=== PATIENT | female | born 1955 | race Caucasian/White ===

== ENCOUNTER → 2018-11-04 09:09 | Outpatient (CLI) | payer OTHER, SELFPAY ==
--- NOTE | 2018-11-04 | DI.RAD.S_ITS ---
PROCEDURE: XR CERVICAL SPINE 2V OR 3V INDICATIONS: CERVICALGIA TECHNIQUE: 3 view(s) of the cervical spine were acquired. COMPARISON: None. FINDINGS: Bones: No fractures or dislocations to the T1 level. The lateral masses of C1 appear intact on the odontoid view. No suspicious bony lesions. There is mild levocurvature. Diffuse facet arthropathy. Moderate narrowing of C5-C6 disc space. There is mild narrowing of the remaining cervical disc spaces with relative sparing of C2-C3. Soft tissues: No prevertebral soft tissue swelling. IMPRESSION: Diffuse cervical spondylosis and facet arthropathy, most pronounced at C5-C6. Mild levocurvature. Dictated by: Christopher Hunter M.D. on 11/04/2018 at 10:24 Approved by: Christopher Hunter M.D. on 11/04/2018 at 10:26
== END ==
PROVIDERS: PCP Internal Medicine; Visit Provider Internal Medicine
DX: M54.2 Cervicalgia (principal); M47.812 Spondylosis without myelopathy or radiculopathy, cervical region
CPT/HCPCS: 72040

== ENCOUNTER 2022-04-19 15:07 | Emergency (ER) | payer MEDICARE, SELFPAY ==
[2022-04-19] VITALS (21 sets, daily range): BP systolic 99–161; BP diastolic 61–115; PULSE 59–145; RESP 14–28; TEMP 36.7; O2SAT 97–100; BMI 19.7
--- NOTE | 2022-04-19 15:15 | DI.RAD.S_ITS ---
PROCEDURE: XR CHEST 1V INDICATIONS: chest pain TECHNIQUE: One view of the chest was acquired. COMPARISON: [facility], , CHEST 1 VIEW, 12/12/2011, 10:55. FINDINGS: Surgical changes and devices: None. Lungs and pleura: Lungs are clear. No pleural effusions or pneumothorax. Mediastinum: Mediastinal contours appear normal. Heart size is normal. Bones and chest wall: No suspicious bony lesions. Overlying soft tissues appear unremarkable. IMPRESSION: No acute cardiopulmonary abnormality. Dictated by: Vernon García M.D. on 04/19/2022 at 16:04 Approved by: Vernon García M.D. on 04/19/2022 at 16:04
[2022-04-19 15:56] LABS: Add Manual Diff / Slide Review NO; Basophils Absolute Auto 100 /uL (0-100); Basophils Percent Auto 0.7 % (0-2); Eosinophils Absolute Auto 0 /uL (0-450); Eosinophils Percent Auto 0.3 % (2-4); Hematocrit 37.9 % (36-46); Hemoglobin 13.1 g/dL (12.0-16.0); Lymphocytes Absolute Auto 1400 /uL (1100-4500); Lymphocytes Percent Auto 16.4 % (25-40); Mean Corpuscular HGB Conc 34.5 % (30-36); Mean Corpuscular Hemoglobin 29.5 PG (26-34); Mean Corpuscular Volume 85.4 fL (80-100); Monocytes Absolute Auto 600 /uL (0-900); Monocytes Percent Auto 6.9 % (3-14); Neutrophils Absolute Auto 6400 /uL (1500-7000); Neutrophils Percent Auto 75.7 % (50-75); Platelet Count 372 X10^3/uL (150-400); Red Blood Cell Count 4.44 X10^6/uL (4.0-5.2); Red Cell Distribution Width 13.9 % (11.6-14.8); White Blood Cell Count 8.5 X10^3/uL (4.5-11.0)
[2022-04-19 15:57] LABS: INR 1.2 (0.9-1.3); Prothrombin Time 13.8 SECONDS (10.1-12.7)
[2022-04-19 16:00] LABS: PTT Partial Thromboplastin Tim 37 SECONDS (26-36)
--- NOTE | 2022-04-19 16:01 | PC.NURSE ---
Patient reports she had an ablation on 04/11/22, was NSR after and had not had a single palpitation until she awoke this morning and felt she was in afib. She was not placed on anti-arrythmics at the time, but given a prescription for Sotalol. She called her mule operator today and spoke to the nurse regarding symptoms, was instructed to start the Sotalol, she did not take a dose yet.
[2022-04-19 16:04] LABS: Alanine Aminotransferase 17 IU/L (<35); Albumin Globulin Ratio 1.4 (1.0-2.8); Alkaline Phosphatase 53 U/L (38-126); Aspartate Aminotransferase 33 IU/L (14-36); BUN Creatinine Ratio 18.6 (6-22); Blood Urea Nitrogen 11 mg/dL (7-17); Calcium 9.6 mg/dL (8.4-10.2); Carbon Dioxide 24 mmol/L (22-32); Chloride 98 mmol/L (98-107); Creatine Kinase 48 U/L (30-135); Estimated Glomerular Filt Rate > 60 mL/min (>60); Globulin 3.7 g/dL (1.7-4.1); Glucose 118 mg/dL (80-110); Lipase 51 U/L (23-300); Magnesium 2.2 mg/dL (1.6-2.3); Potassium 4.2 mmol/L (3.4-5.1); Sodium 133 mmol/L (137-145); Total Protein 8.7 g/dL (6.3-8.2)
[2022-04-19 16:05] LABS: HEMOLYSIS 61 (0-50)
[2022-04-19 16:14] LABS: Troponin I 0.117 ng/mL (0.01-0.034)
--- NOTE | 2022-04-19 16:26 | ED_ITS ---
HPI - Arrhythmia/Palpitations General Chief Complaint: Arrhythmia/Palpitations Stated Complaint: heart issues Time Seen by Provider: 04/19/22 16:16 Source: patient Mode of arrival: Ambulatory History of Present Illness HPI narrative: Patient is a healthy 66-year-old female history of atrial fibrillation. In fact she just had an ablation last week with her dairy cattle farm worker. She followed up with her dairy cattle farm worker yesterday at that time she was in sinus rhythm. This morning she woke up and knew she was in AFib. Her heart rate is 150-160. She can feel it in her chest. She has been taking Xarelto his not missed any doses. Patient is a that she was supposed to take sotalol. She did contact her dairy cattle farm worker this morning not sure if she was supposed to take the sotalol today are not but she did not take it. Related Data Home Medications Medication Instructions Recorded Confirmed [NATURAL THYROID SUPP] ##0 01/13/12 aspirin 81 mg chewable tablet 81 mg PO QDAY ##0 01/29/12 metoprolol tartrate 50 mg tablet 50 mg PO BID ##0 01/29/12 Allergies Allergy/AdvReac Type Severity Reaction Status Date / Time No Known Drug Allergies Allergy Verified 04/19/22 15:12 Review of Systems Review of Systems Narrative: GENERAL: Denies chills, fatigue, malaise, fever, sweats, travel HEENT: Denies sinus pain, ear pain, sore throat, difficulty swallowing, neck pain RESPIRATORY: Denies dyspnea, cough, wheezing, hemoptysis, sputum. CARDIOVASCULAR: See HP GASTROINTESTINAL: Denies nausea, vomiting, abdominal pain, diarrhea, constipation, melena. : Denies dysuria, frequency, incontinence, hematuria, urinary retention, flank pain. MUSCULOSKELETAL: Denies weakness, joint pain, or bony pain SKIN: No rash, no erythema, no pruritus NEUROLOGIC: Denies weakness, dizziness, headache, numbness, change in speech, confusion PSYCHIATRIC: No concerning psychosocial issues. 12 point review of systems is negative except for those stated above and HPI Patient History Social History Smoking Status: Unknown if ever smoked Smoking Status: Unknown if ever smoked alcohol intake frequency: 0-2 drinks per day Substance Use Type: does not use Exam Initial Vital Signs Initial Vital Signs: Vital Signs Temperature 98.0 F 04/19/22 15:11 Pulse Rate 59 L 04/19/22 15:11 Respiratory Rate 15 04/19/22 15:11 Blood Pressure 99/61 04/19/22 15:11 Pulse Oximetry 99 04/19/22 15:11 Oxygen Delivery Method 04/19/22 15:11 GENERAL: Alert pleasant 66-year-old female and in no acute distress. HEENT: Head atraumatic,EOMI, pupils reactive, face symmetric, moist mucous membranes CARDIOVASCULAR: Tachycardic irregularly irregular RESPIRATORY: Breath sounds equal bilaterally, no wheezes rales or rhonchi. ABDOMEN: Soft, nontender. Normoactive bowel sounds all 4 quadrants. No guardin g or rebound. EXTREMITIES: Normal range of motion, no clubbing or edema. Neurovascularly intact NEUROLOGICAL: Alert and oriented x4 SKIN: Warm, dry, no laceration, no petechiae, no rashes or lesions. Procedures Cardioversion Consent Signed: Yes Stability: Stable Number of attempts (shocks): 1 Joules used: 120 Cardiac rhythm post-cardioversion: NSR Procedural Sedation Indication: cardioversion IV Propofol dose (mg): 55 Intraservice time/total sedation time (min): 12 ED Sedation Level: Moderate (Concious) Patient Tolerated Procedure: Well and No complications Course Orders Ordered: ED Orders 04/19/22 15:15 XR chest 1V Stat EKG-12 Lead Stat 04/19/22 15:24 BNP [NT-proBNP (BNP-Adult 18+)] Stat Complete Blood Count AUTO DIFF Stat Comprehensive Metabolic Panel Stat Lipase Stat Magnesium Stat Partial Thromboplastin Time Stat Prothrombin Time INR Stat Troponin & CK Cardiac Panel Stat Discontinued Medications Metoprolol Tartrate (Metoprolol Tartrate 5 Mg/5 Ml Inj) 5 mg IV NOW ONE Stop: 04/19/22 16:49 Last Admin: 04/19/22 17:06 Dose: 5 mg Documented By: AT Propofol (Propofol 200 Mg/20 Ml Vial) 55 mg 1 mg/kg (55 mg) IV NOW ONE Stop: 04/19/22 17:50 Last Admin: 04/19/22 18:11 Dose: 55 mg Documented By: AT Vital Signs Vital signs: Vital Signs - 8 hr 04/19/22 15:11 04/19/22 15:17 04/19/22 15:20 Temperature 98.0 F Pulse Rate 59 L 123 H 132 H Respiratory Rate 15 16 Blood Pressure 99/61 Pulse Oximetry 99 99 100 Oxygen Delivery Method Room Air 04/19/22 15:20 04/19/22 15:30 04/19/22 15:30 Temperature Pulse Rate 135 H Respiratory Rate 14 Blood Pressure 146/115 H 152/79 H Pulse Oximetry 100 Oxygen Delivery Method 04/19/22 16:00 04/19/22 16:00 04/19/22 16:30 Temperature Pulse Rate 128 H Respiratory Rate 15 Blood Pressure 153/102 H 161/97 H Pulse Oximetry 100 Oxygen Delivery Method Room Air 04/19/22 16:30 04/19/22 17:00 04/19/22 17:06 Temperature Pulse Rate 133 H 132 H 145 H Respiratory Rate 23 22 14 Blood Pressure Pulse Oximetry 99 99 100 Oxygen Delivery Method Room Air 04/19/22 17:06 04/19/22 17:11 04/19/22 17:11 Temperature Pulse Rate 116 H Respiratory Rate 23 Blood Pressure 144/67 H 136/92 H Pulse Oximetry 99 Oxygen Delivery Method 04/19/22 17:15 04/19/22 17:15 04/19/22 17:30 Temperature Pulse Rate 117 H Respiratory Rate 18 Blood Pressure 133/70 124/70 Pulse Oximetry 100 Oxygen Delivery Method 04/19/22 17:30 04/19/22 17:45 04/19/22 17:45 Temperature Pulse Rate 107 H 101 H Respiratory Rate 20 21 Blood Pressure 124/80 Pulse Oximetry 100 99 Oxygen Delivery Method 04/19/22 18:00 04/19/22 18:00 04/19/22 18:12 Temperature Pulse Rate 116 H Respiratory Rate 21 Blood Pressure 119/80 108/69 Pulse Oximetry 99 Oxygen Delivery Method 04/19/22 18:12 04/19/22 18:15 04/19/22 18:15 Temperature Pulse Rate 87 73 Respiratory Rate 19 26 H Blood Pressure 107/69 Pulse Oximetry 99 98 Oxygen Delivery Method 04/19/22 18:20 04/19/22 18:20 04/19/22 18:25 Temperature Pulse Rate 73 Respiratory Rate 28 H Blood Pressure 106/69 114/75 Pulse Oximetry 97 Oxygen Delivery Method 04/19/22 18:25 04/19/22 18:30 04/19/22 18:30 Temperature Pulse Rate 72 70 Respiratory Rate 26 H 23 Blood Pressure 105/71 Pulse Oximetry 97 98 Oxygen Delivery Method 04/19/22 18:35 04/19/22 18:35 Temperature Pulse Rate 71 Respiratory Rate 24 Blood Pressure 119/78 Pulse Oximetry 99 Oxygen Delivery Method MDM - Arrhythmia/Palpitations Lab Data Result diagrams: 04/19/22 15:24 04/19/22 15:24 Labs: Lab Results 04/19/22 04/19/22 04/19/22 Range/Units 15:24 15:24 15:24 WBC 8.5 (4.5-11.0) X10^3/uL RBC 4.44 (4.0-5.2) X10^6/uL Hgb 13.1 (12.0-16.0) g/dL Hct 37.9 (36-46) % MCV 85.4 (80-100) fL MCH 29.5 (26-34) PG MCHC 34.5 (30-36) % RDW 13.9 (11.6-14.8) % Plt Count 372 (150-400) X10^3/uL Neut % (Auto) 75.7 H (50-75) % Lymph % (Auto) 16.4 L (25-40) % Navarro % (Auto) 6.9 (3-14) % Eos % (Auto) 0.3 L (2-4) % Baso % (Auto) 0.7 (0-2) % Neut # (Auto) 6400 (7665-4207) /uL Lymph # (Auto) 1400 (8372-4254) /uL Navarro # (Auto) 600 (0-900) /uL Eos # (Auto) 0 (0-450) /uL Baso # (Auto) 100 (0-100) /uL PT 13.8 H (10.1-12.7) SECONDS INR 1.2 (0.9-1.3) APTT 37 H (26-36) SECONDS Sodium 133 L (137-145) mmol/L Potassium 4.2 (3.4-5.1) mmol/L Chloride 98 (98-107) mmol/L Carbon Dioxide 24 (22-32) mmol/L BUN 11 (7-17) mg/dL Creatinine 0.59 (0.52-1.04) mg/dL Estimated GFR > 60 (>60) mL/min BUN/Creatinine Ratio 18.6 (6-22) Glucose 118 H (80-110) mg/dL Calcium 9.6 (8.4-10.2) mg/dL Magnesium 2.2 (1.6-2.3) mg/dL Total Bilirubin 2.0 H (0.2-1.3) mg/dL AST 33 (14-36) IU/L ALT 17 (<35) IU/L Alkaline Phosphatase 53 (38-126) U/L Total Creatine Kinase 48 (30-135) U/L CK-MB (CK-2) TNP CK-MB (CK-2) Rel Index TNP Troponin I 0.117 H (0.01-0.034) ng/mL NT-Pro-B Natriuret Pep (<125) pg/mL Total Protein 8.7 H (6.3-8.2) g/dL Albumin 5.0 (3.5-5.0) g/dL Globulin 3.7 (1.7-4.1) g/dL Albumin/Globulin Ratio 1.4 (1.0-2.8) Lipase 51 (23-300) U/L 04/19/22 Range/Units 15:24 WBC (4.5-11.0) X10^3/uL RBC (4.0-5.2) X10^6/uL Hgb (12.0-16.0) g/dL Hct (36-46) % MCV (80-100) fL MCH (26-34) PG MCHC (30-36) % RDW (11.6-14.8) % Plt Count (150-400) X10^3/uL Neut % (Auto) (50-75) % Lymph % (Auto) (25-40) % Navarro % (Auto) (3-14) % Eos % (Auto) (2-4) % Baso % (Auto) (0-2) % Neut # (Auto) (5676-1506) /uL Lymph # (Auto) (2587-0092) /uL Navarro # (Auto) (0-900) /uL Eos # (Auto) (0-450) /uL Baso # (Auto) (0-100) /uL PT (10.1-12.7) SECONDS INR (0.9-1.3) APTT (26-36) SECONDS Sodium (137-145) mmol/L Potassium (3.4-5.1) mmol/L Chloride (98-107) mmol/L Carbon Dioxide (22-32) mmol/L BUN (7-17) mg/dL Creatinine (0.52-1.04) mg/dL Estimated GFR (>60) mL/min BUN/Creatinine Ratio (6-22) Glucose (80-110) mg/dL Calcium (8.4-10.2) mg/dL Magnesium (1.6-2.3) mg/dL Total Bilirubin (0.2-1.3) mg/dL AST (14-36) IU/L ALT (<35) IU/L Alkaline Phosphatase (38-126) U/L Total Creatine Kinase (30-135) U/L CK-MB (CK-2) CK-MB (CK-2) Rel Index Troponin I (0.01-0.034) ng/mL NT-Pro-B Natriuret Pep 1010 H (<125) pg/mL Total Protein (6.3-8.2) g/dL Albumin (3.5-5.0) g/dL Globulin (1.7-4.1) g/dL Albumin/Globulin Ratio (1.0-2.8) Lipase (23-300) U/L Imaging Data Chest x-ray: Radiologist's Impresson: XRay Report Signed Patient: Maye Ramírez MR#: [id number] : 1955 Acct:[id number] Age/Sex: 66 / F Date of Service: 04/19/22 Loc: ED Accession Number: [id number] ?? Procedure: XR chest 1V Ordering Provider: Eileen Rodney D.O. PROCEDURE:? XR CHEST 1V ? INDICATIONS:? chest pain ? TECHNIQUE:? One view of the chest was acquired.? ? COMPARISON:? [facility], , CHEST 1 VIEW, 12/12/2011, 10:55. ? FINDINGS:? ? Surgical changes and devices:? None.? ? Lungs and pleura:? Lungs are clear.? No pleural effusions or pneumothorax.? ? Mediastinum:? Mediastinal contours appear normal.? Heart size is normal.? ? Bones and chest wall:? No suspicious bony lesions.? Overlying soft tissues appear unremarkable.? ? IMPRESSION:? No acute cardiopulmonary abnormality. ? ? ? Dictated by: Vernon García M.D. on 04/19/2022 at 16:04 ? ? ECG Data Interpretation: EKG 1. Atrial fibrillation rate [address] changes EKG 2. Sinus rhythm rate 73 WA interval 172 QRS [address] changes MDM Narrative Medical decision making narrative: Patient has AFib with RVR heart rate is 160 status post ablation 1 week. Patient has been taking her Xarelto without any break. Difficult to understand what she was doing with the sotalol if she is supposed to take it. 17:15 Dr jung, cardiology [facility] states that there is no contraindication to cardioversion and recommends to cardiovert with outpatient follow-up. Patient was easily cardioverted without any difficulty Discharge Plan Departure Patient Disposition: Home Clinical Impression: Atrial fibrillation Instructions: DI for Atrial Fibrillation Activity Restrictions/Additional Instructions: *You have been diagnosed with atrial fibrillation *What to do: Please follow-up with cardiology *Continue to take medications as directed Continue Xarelto *Follow up with your primary care provider in 2-3 days or call [phone] *Return to ER if you should have chest pain shortness of breath palpitation or any new, worsening or concerning symptoms Prescriptions: No Action [NATURAL THYROID SUPP] Qty: 0 metoprolol tartrate 50 MG tablet 50 mg PO BID Qty: 0 aspirin 81 MG tablet,chewable 81 mg PO QDAY Qty: 0 Referrals: Patsy Ruth PA-C [Primary Care Provider] - Ladarius Shannon MD [Non-Staff] -
[2022-04-19] MEDS: METOPROLOL TARTRATE 5 MG/5 ML INJ IV (17:06)
[2022-04-19] MEDS: propofoL 200 MG/20 ML VIAL 55 MG IV (18:11)
[2022-04-19 18:43] LABS: NT-proBNP (BNP-Adult 18+) 1010 pg/mL (<125)
== END 2022-04-19 19:18 | disposition home or self-care (01) ==
PROVIDERS: Emergency Provider Emergency Medicine; PCP Physician Assistant
DX: I48.91 Unspecified atrial fibrillation (principal); Z79.01 Long term (current) use of anticoagulants
CPT/HCPCS: 36415; 71045; 80053; 82550; 83690; 83735; 83880; 84484; 85025; 85610; 85730; 92960; 93005; 96374; 99152; 99285; 99291; J2704

== ENCOUNTER → 2022-09-21 14:12 | Outpatient (CLI) | payer MEDICARE, SELFPAY | PROVIDERS: PCP Physician Assistant; Referring Provider Physician Assistant; Visit Provider Physician Assistant | DX: Z78.0 Asymptomatic menopausal state (principal); Z13.820 Encounter for screening for osteoporosis; M85.851 Other specified disorders of bone density and structure, right thigh; Z92.23 Personal history of estrogen therapy | CPT/HCPCS: 77080 ==

== ENCOUNTER → 2022-12-28 08:45 | Outpatient (CLI) | payer MEDICARE, SELFPAY ==
[2022-12-28 10:17] LABS: Alanine Aminotransferase 30 IU/L (<35); Albumin 4.6 g/dL (3.5-5.0); Albumin Globulin Ratio 1.4 (1.0-2.8); Alkaline Phosphatase 50 U/L (38-126); Aspartate Aminotransferase 31 IU/L (14-36); BUN Creatinine Ratio 12.5 (6-22); Bilirubin Total 0.8 mg/dL (0.2-1.3); Blood Urea Nitrogen 8 mg/dL (7-17); Calcium 9.3 mg/dL (8.4-10.2); Carbon Dioxide 27 mmol/L (22-32); Chloride 98 mmol/L (98-107); Cholesterol 288 mg/dL (140-199); Estimated Glomerular Filt Rate > 60 mL/min (>60); Globulin 3.2 g/dL (1.7-4.1); Glucose 89 mg/dL (80-110); HDL Cholesterol 110 mg/dL (40-60); HEMOLYSIS < 15 (0-50); LDL Cholesterol Calculated 155 mg/dL (<100); Potassium 4.1 mmol/L (3.4-5.1); Sodium 133 mmol/L (137-145); Total Protein 7.8 g/dL (6.3-8.2); Triglycerides 117 mg/dL (35-150)
[2022-12-28 10:37] LABS: Free T3, Triiodothyronine Free 3.52 pg/mL (2.77-5.27); Free T4, Direct Thyroxine 0.86 ng/dL (0.78-2.19); T4 Total Thyroxine 5.94 ug/dL (5.5-11.0)
[2022-12-28 10:50] LABS: Thyroid Stimulating Hormone 2.28 uIU/mL (0.47-4.68)
[2022-12-29 09:51] LABS: Thyroid Peroxidase Antibodies <9 IU/mL (0-34); Triiodothyronine T3 Total 91 ng/dL (71-180)
[2022-12-31 06:08] LABS: HCV AB Non Reactive (Non Reactive)
[2023-01-07 10:11] LABS: Triiodothyronine T3 Reverse 12.6
[2023-01-09 01:25] LABS: Thyroglobulin Level 8.5 ng/mL (.)
== END ==
PROVIDERS: PCP Family Medicine; Referring Provider Nurse Practitioner Family; Visit Provider Nurse Practitioner Family
DX: E03.9 Hypothyroidism, unspecified (principal); Z13.220 Encounter for screening for lipoid disorders; Z11.59 Encounter for screening for other viral diseases
CPT/HCPCS: 36415; 80053; 80061; 82542; 84432; 84436; 84439; 84443; 84480; 84481; 84482; 86376; 86803

== ENCOUNTER → 2023-04-08 14:33 | Outpatient (CLI) | payer MEDICARE, SELFPAY ==
[2023-04-08 15:19] LABS: Add Manual Diff / Slide Review NO; Basophils Absolute Auto 0 /uL (0-100); Basophils Percent Auto 0.7 % (0-2); Eosinophils Absolute Auto 100 /uL (0-450); Eosinophils Percent Auto 0.9 % (2-4); Hematocrit 34.4 % (36-46); Hemoglobin 11.8 g/dL (12.0-16.0); Lymphocytes Absolute Auto 2100 /uL (1100-4500); Mean Corpuscular HGB Conc 34.5 % (30-36); Mean Corpuscular Hemoglobin 29.5 PG (26-34); Mean Corpuscular Volume 85.7 fL (80-100); Monocytes Absolute Auto 600 /uL (0-900); Monocytes Percent Auto 9.2 % (3-14); Neutrophils Absolute Auto 3900 /uL (1500-7000); Neutrophils Percent Auto 58.2 % (50-75); Platelet Count 288 X10^3/uL (150-400); Red Blood Cell Count 4.01 X10^6/uL (4.0-5.2); Red Cell Distribution Width 13.9 % (11.6-14.8); White Blood Cell Count 6.6 X10^3/uL (4.5-11.0)
[2023-04-08 15:39] LABS: Alanine Aminotransferase 21 IU/L (<35); Albumin 4.6 g/dL (3.5-5.0); Albumin Globulin Ratio 1.4 (1.0-2.8); Alkaline Phosphatase 65 U/L (38-126); Aspartate Aminotransferase 31 IU/L (14-36); BUN Creatinine Ratio 20.7 (6-22); Bilirubin Total 1.4 mg/dL (0.2-1.3); Blood Urea Nitrogen 12 mg/dL (7-17); Calcium 9.5 mg/dL (8.4-10.2); Carbon Dioxide 23 mmol/L (22-32); Chloride 99 mmol/L (98-107); Cholesterol 266 mg/dL (140-199); Estimated Glomerular Filt Rate > 60 mL/min (>60); Globulin 3.4 g/dL (1.7-4.1); Glucose 85 mg/dL (80-110); HEMOLYSIS < 15 (0-50); Potassium 4.4 mmol/L (3.4-5.1); Sodium 132 mmol/L (137-145); Triglycerides 121 mg/dL (35-150)
[2023-04-08 15:46] LABS: HDL Cholesterol 102 mg/dL (40-60); LDL Cholesterol Calculated 140 mg/dL (<100)
[2023-04-08 16:03] LABS: Thyroid Stimulating Hormone 0.062 uIU/mL (0.47-4.68)
[2023-04-08 16:24] LABS: Free T3, Triiodothyronine Free 4.54 pg/mL (2.77-5.27); Free T4, Direct Thyroxine 1.15 ng/dL (0.78-2.19)
== END ==
PROVIDERS: PCP Family Medicine; Referring Provider Family Medicine; Visit Provider Family Medicine
DX: Z00.00 Encounter for general adult medical examination without abnormal findings (principal); E03.9 Hypothyroidism, unspecified
CPT/HCPCS: 36415; 80053; 80061; 84439; 84443; 84481; 85025

== ENCOUNTER → 2023-06-05 08:39 | Outpatient (CLI) | payer MEDICARE, SELFPAY ==
--- NOTE | 2023-06-05 08:41 | DI.RAD.S_ITS ---
PROCEDURE: XR SHOULDER RT MIN 2V INDICATIONS: Right shoulder pain TECHNIQUE: 3 views of the shoulder were acquired. COMPARISON: None. FINDINGS: Bones: No fractures or dislocations. No suspicious bony lesions. Visualized ribs appear intact. Soft tissues: No suspicious soft tissue calcifications. IMPRESSION: No acute osseous abnormality. If pain persists with conservative management, consider repeat x-ray in 10-14 days or cross-sectional imaging. Dictated by: Alvin Perez M.D. on 06/05/2023 at 9:18 Approved by: Alvin Perez M.D. on 06/05/2023 at 9:19
== END ==
PROVIDERS: PCP Family Medicine; Referring Provider Family Medicine; Visit Provider Family Medicine
DX: M25.511 Pain in right shoulder (principal)
CPT/HCPCS: 73030

== ENCOUNTER → 2023-06-27 10:14 | Outpatient (CLI) | payer MEDICARE, SELFPAY ==
[2023-06-27 12:11] LABS: Free T3, Triiodothyronine Free 3.73 pg/mL (2.77-5.27)
[2023-06-27 12:19] LABS: BUN Creatinine Ratio 7.7 (6-22); Blood Urea Nitrogen 5 mg/dL (7-17); Calcium 9.8 mg/dL (8.4-10.2); Carbon Dioxide 25 mmol/L (22-32); Chloride 101 mmol/L (98-107); Estimated Glomerular Filt Rate > 60 mL/min (>60); Glucose 89 mg/dL (80-110); HEMOLYSIS < 15 (0-50); Potassium 4.5 mmol/L (3.4-5.1); Sodium 134 mmol/L (137-145)
[2023-06-27 12:25] LABS: Thyroid Stimulating Hormone 3.36 uIU/mL (0.47-4.68)
[2023-06-29 19:36] LABS: Anti Thyroglobulin Antibody <1.0 IU/mL (0.0-0.9)
[2023-07-02 10:02] LABS: Thyroid Peroxidase Antibodies <9 IU/mL (0-34)
== END ==
PROVIDERS: PCP Family Medicine; Referring Provider Internal Medicine Endocrinology, Diabetes & Metabolism; Visit Provider Internal Medicine Endocrinology, Diabetes & Metabolism
DX: E03.8 Other specified hypothyroidism (principal); E06.3 Autoimmune thyroiditis
CPT/HCPCS: 36415; 80048; 84439; 84443; 84481; 86376; 86800

== ENCOUNTER → 2023-08-23 09:01 | Outpatient (CLI) | payer MEDICARE, SELFPAY ==
[2023-08-23 11:23] LABS: Free T3, Triiodothyronine Free 5.54 pg/mL (2.77-5.27); Free T4, Direct Thyroxine 1.01 ng/dL (0.78-2.19)
[2023-08-23 11:36] LABS: Thyroid Stimulating Hormone 0.129 uIU/mL (0.47-4.68)
[2023-08-24 18:34] LABS: Anti Thyroglobulin Antibody <1.0 IU/mL (0.0-0.9)
[2023-09-02 10:16] LABS: Thyroid Peroxidase Antibodies 9
== END ==
PROVIDERS: PCP Family Medicine; Referring Provider Internal Medicine Endocrinology, Diabetes & Metabolism; Visit Provider Internal Medicine Endocrinology, Diabetes & Metabolism
DX: E03.8 Other specified hypothyroidism (principal); E06.3 Autoimmune thyroiditis
CPT/HCPCS: 36415; 84439; 84443; 84481; 86376; 86800

== ENCOUNTER → 2023-09-25 06:48 | Outpatient (CLI) | payer MEDICARE, SELFPAY ==
[2023-09-25 08:54] LABS: Free T4, Direct Thyroxine 0.89 ng/dL (0.78-2.19)
[2023-09-25 09:07] LABS: Thyroid Stimulating Hormone 1.03 uIU/mL (0.47-4.68)
== END ==
LOC: LAB 06:50
PROVIDERS: PCP Family Medicine; Referring Provider Internal Medicine Endocrinology, Diabetes & Metabolism; Visit Provider Internal Medicine Endocrinology, Diabetes & Metabolism
DX: E03.8 Other specified hypothyroidism (principal); E06.3 Autoimmune thyroiditis
CPT/HCPCS: 36415; 84439; 84443; 84481

== ENCOUNTER → 2024-01-30 11:08 | Outpatient (CLI) | payer MEDICARE, SELFPAY ==
[2024-01-30 13:34] LABS: Free T3, Triiodothyronine Free 3.16 pg/mL (2.77-5.27); Free T4, Direct Thyroxine 0.81 ng/dL (0.78-2.19)
[2024-01-30 13:47] LABS: Thyroid Stimulating Hormone 0.611 uIU/mL (0.47-4.68)
== END ==
LOC: LAB 11:09
PROVIDERS: PCP Family Medicine; Referring Provider Internal Medicine Endocrinology, Diabetes & Metabolism; Visit Provider Internal Medicine Endocrinology, Diabetes & Metabolism
DX: E03.8 Other specified hypothyroidism (principal); E06.3 Autoimmune thyroiditis
CPT/HCPCS: 36415; 84439; 84443; 84481

== ENCOUNTER → 2024-06-05 08:33 | Outpatient (CLI) | payer MEDICARE, SELFPAY ==
[2024-06-05 10:42] LABS: Free T3, Triiodothyronine Free 2.86 pg/mL (2.77-5.27); Free T4, Direct Thyroxine 0.74 ng/dL (0.78-2.19)
[2024-06-05 10:55] LABS: Thyroid Stimulating Hormone 3.58 uIU/mL (0.47-4.68)
[2024-06-06 21:11] LABS: Thyroglobulin Antibodies < 1.0 IU/mL (0.0-0.9)
[2024-06-07 05:09] LABS: Thyroid Peroxidase Antibodies 12 IU/mL (0-34)
== END ==
PROVIDERS: PCP Family Medicine; Referring Provider Internal Medicine Endocrinology, Diabetes & Metabolism; Visit Provider Internal Medicine Endocrinology, Diabetes & Metabolism
DX: E03.8 Other specified hypothyroidism (principal); E06.3 Autoimmune thyroiditis
CPT/HCPCS: 36415; 84432; 84439; 84443; 84481; 84482; 86376; 86800

== ENCOUNTER → 2024-10-22 13:36 | Outpatient (CLI) | payer MEDICARE, SELFPAY ==
[2024-10-22 18:47] LABS: Appearance Urine UA CLEAR; Bilirubin Urine UA NEGATIVE (NEGATIVE); Color Urine UA YELLOW; Glucose Urine UA NEGATIVE (Negative); Ketones Urine UA NEGATIVE (NEGATIVE); Leukocyte Esterase Urine UA NEGATIVE (NEGATIVE); Nitrite Urine UA NEGATIVE (Negative); Occult Blood Urine UA NEGATIVE (Negative); Protein Urine UA NEGATIVE (Negative); Urobilinogen Urine UA 0.2 E.U./dL (0.2)
[2024-10-22 19:03] LABS: pH Urine UA 7.5 (4.5-8.0)
[2024-10-22 19:08] LABS: Amorphous Sediment Urine 1+; Bacteria Urine Occasional (0-1); Culture Indicated Urine Cult Not Indicated; RBC Urine None Seen (0-5/HPF); Squamous Epithelial Cell Urine 0-1 /HPF (0-5/HPF); Urine Volume 10mL (spun); WBC Urine None Seen (0-5/HPF)
== END ==
PROVIDERS: PCP Family Medicine; Visit Provider Obstetrics & Gynecology Gynecology
DX: R33.9 Retention of urine, unspecified (principal)
CPT/HCPCS: 81001

== ENCOUNTER → 2024-12-07 08:44 | Outpatient (CLI) | payer MEDICARE, SELFPAY ==
[2024-12-07 10:43] LABS: Free T3, Triiodothyronine Free 3.76 pg/mL (2.77-5.27); Free T4, Direct Thyroxine 1.07 ng/dL (0.78-2.19)
[2024-12-07 10:56] LABS: Thyroid Stimulating Hormone 2.12 uIU/mL (0.47-4.68)
== END ==
PROVIDERS: PCP Family Medicine; Referring Provider Internal Medicine Endocrinology, Diabetes & Metabolism; Visit Provider Internal Medicine Endocrinology, Diabetes & Metabolism
DX: E06.3 Autoimmune thyroiditis (principal)
CPT/HCPCS: 36415; 84439; 84443; 84481

== ENCOUNTER → 2025-07-02 09:08 | Outpatient (CLI) | payer MEDICARE, SELFPAY ==
[2025-07-02 10:16] LABS: Cholesterol 263 mg/dL (140-199); Triglycerides 71 mg/dL (35-150)
[2025-07-02 10:24] LABS: HDL Cholesterol 123 mg/dL (40-60)
[2025-07-03 07:09] LABS: CRP, High Sensitivity 0.60 mg/L (0.00-3.00)
== END ==
PROVIDERS: PCP Family Medicine; Referring Provider Internal Medicine Endocrinology, Diabetes & Metabolism; Visit Provider Internal Medicine Endocrinology, Diabetes & Metabolism
DX: E78.00 Pure hypercholesterolemia, unspecified (principal); M85.80 Other specified disorders of bone density and structure, unspecified site; R73.9 Hyperglycemia, unspecified; E03.9 Hypothyroidism, unspecified; Z78.0 Asymptomatic menopausal state
CPT/HCPCS: 36415; 80061; 82523; 83525; 86140

== ENCOUNTER → 2025-08-17 09:09 | Outpatient (CLI) | payer MEDICARE, SELFPAY ==
[2025-08-17 11:15] LABS: Free T3, Triiodothyronine Free 3.01 pg/mL (2.77-5.27); Free T4, Direct Thyroxine 0.78 ng/dL (0.78-2.19)
[2025-08-17 11:29] LABS: Thyroid Stimulating Hormone 0.947 uIU/mL (0.47-4.68)
== END ==
PROVIDERS: PCP Family Medicine; Referring Provider Internal Medicine Endocrinology, Diabetes & Metabolism; Visit Provider Internal Medicine Endocrinology, Diabetes & Metabolism
DX: E06.3 Autoimmune thyroiditis (principal)
CPT/HCPCS: 36415; 84439; 84443; 84481